=== PATIENT | male | born 1980 | race Caucasian/White ===

== ENCOUNTER 2016-09-10 19:23 | Emergency (ER) | payer SELFPAY ==
[~2016-09-10] VITALS: Ht 182.9 cm; Wt 95.3 kg
[2016-09-10 19:39] VITALS: BP 143/99
[2016-09-10] MEDS ORDERED: BACITRACIN TOP OINT 1 UD PKG TOP ONE (21:00)
== END 2016-09-10 21:05 | disposition home or self-care (01) ==
LOC: ER 19:29
DX: S61.411A Laceration without foreign body of right hand, initial encounter (principal); F17.210 Nicotine dependence, cigarettes, uncomplicated; F12.10 Cannabis abuse, uncomplicated; Y04.0XXA Assault by unarmed brawl or fight, initial encounter; Y93.89 Activity, other specified; Y99.8 Other external cause status; Y92.89 Other specified places as the place of occurrence of the external cause; Z88.6 Allergy status to analgesic agent
CPT/HCPCS: 12002

== ENCOUNTER 2016-10-25 11:55 | Emergency (ER) | payer SELFPAY ==
[~2016-10-25] VITALS: Ht 182.9 cm; Wt 86.2 kg
[2016-10-25 12:04] VITALS: BP 126/82
[2016-10-25] MEDS ORDERED: SODIUM CHLORIDE 0.9% 1,000 ML IVB ONE (12:15)
[2016-10-25] MEDS ORDERED: NALBUPHINE HCL 10 MG/1ml INJECTION IV ONE (12:15)
[2016-10-25 12:54] LABS: Basophils # (auto) 0.1 uL; Basophils % (auto) 0.5 % (0.0-2.0); Eosinophils # (auto) 0.1 uL; Eosinophils % (auto) 1.2 % (0.0-7.0); Hematocrit 45.2 % (41.0-53.0); Hemoglobin 15.6 g/dL (13.5-17.5); Lymphocytes % (auto) 35.2 % (10.0-50.0); Mean Corpuscular Hemoglobin 31.9 pg (28.0-32.0); Mean Corpuscular Hgb Conc. 34.7 g/dL (32.0-36.0); Mean Platelet Volume 7.9 fL (7.4-10.4); Neutrophils # (auto) 6.2 uL; Neutrophils % (auto) 54.1 % (37.0-80.0); Platelet Count (auto) 363 10^3/uL (140-450); Red Cell Distribution Width 13.4 % (11.6-16.0); White Blood Cell 11.5 10^3/uL (4.4-10.8)
[2016-10-25 13:10] LABS: Alkaline Phosphatase 79 U/L (45-117); Amylase 52 U/L (25-115); Anion Gap 11 (5-15); Aspartate Aminotransferase 23 U/L (15-37); BUN/Creatinine Ratio 18.2; Bilirubin, Total 0.5 mg/dL (0.2-1.0); Blood Urea Nitrogen 16 mg/dL (7-18); Calcium 9.5 mg/dL (8.5-10.1); Carbon Dioxide 25 mmol/L (21-32); Chloride 108 mmol/L (98-107); GFR African American 125 mL/min; GFR Non-African American 104 mL/min; Glucose 88 mg/dL (74-106); Sodium 144 mmol/L (136-145)
== END 2016-10-25 15:11 | disposition home or self-care (01) ==
LOC: ER 11:55 → EDBD 11:55 → ER 15:08
DX: M71.9 Bursopathy, unspecified (principal); F17.210 Nicotine dependence, cigarettes, uncomplicated; F12.10 Cannabis abuse, uncomplicated; Z88.6 Allergy status to analgesic agent
CPT/HCPCS: 36415; 73080; 80053; 82150; 83690; 84484; 85025; 87040; 96374; 99285; J2300

== ENCOUNTER 2016-10-25 16:25 | Observation (INO) | payer SELFPAY ==
[~2016-10-25] VITALS: Ht 182.9 cm; Wt 88.5 kg
[2016-10-25 21:25] LABS: Albumin 3.9 g/dL (3.4-5.0); Calcium 9.1 mg/dL (8.5-10.1); Potassium 4.1 mmol/L (3.5-5.1)
[2016-10-25 21:27] LABS: BUN/Creatinine Ratio 17.8
[2016-10-25 21:29] LABS: Bilirubin, Total 0.3 mg/dL (0.2-1.0); Total Protein 8.1 g/dL (6.4-8.2)
[2016-10-25 21:38] LABS: Basophils # (auto) 0.1 uL; Basophils % (auto) 0.5 % (0.0-2.0); Eosinophils # (auto) 0.2 uL; Eosinophils % (auto) 2.2 % (0.0-7.0); Hematocrit 45.4 % (41.0-53.0); Hemoglobin 15.5 g/dL (13.5-17.5); Lymphocytes # (auto) 3.9 uL; Lymphocytes % (auto) 35.3 % (10.0-50.0); Mean Corpuscular Hgb Conc. 34.2 g/dL (32.0-36.0); Mean Corpuscular Volume 93.5 fL (80.0-100.0); Mean Platelet Volume 7.7 fL (7.4-10.4); Monocytes # (auto) 0.9 uL; Monocytes % (auto) 8.5 % (0.0-12.0); Neutrophils # (auto) 5.9 uL; Neutrophils % (auto) 53.5 % (37.0-80.0); Platelet Count (auto) 361 10^3/uL (140-450); Red Cell Distribution Width 13.9 % (11.6-16.0); White Blood Cell 11.1 10^3/uL (4.4-10.8)
[2016-10-25 22:39] LABS: Urine Bilirubin Negative (Negative); Urine Blood Negative /uL (Negative); Urine Ca Oxalate Crystal FEW (None Seen); Urine Color Yellow (Yellow); Urine Glucose Normal (Normal); Urine Ketone Negative (Negative); Urine Mucus FEW (None Seen); Urine Nitrite Negative (Negative); Urine RBC 2 /hpf (0 - 3); Urine Urobilinogen Normal (Negative); Urine pH 6.5 (5.0-8.0)
[2016-10-25] MEDS ORDERED: LORazepam 2MG/ML-1ML VIAL ONE (23:19)
[2016-10-25] MEDS ORDERED: LORazepam 2MG/ML-1ML VIAL IV ONE (23:30)
[2016-10-26 00:42] VITALS: BP 125/80
== END 2016-10-26 00:42 | disposition home or self-care (01) | DRG 897 ==
LOC: ER 16:32 → OVERFLOW 22:27 → ER 10-26 00:42
PROVIDERS: ADMIT Emergency Medicine; ATTEND Emergency Medicine
DX: F15.10 Other stimulant abuse, uncomplicated (principal); F12.10 Cannabis abuse, uncomplicated; L30.9 Dermatitis, unspecified; F17.210 Nicotine dependence, cigarettes, uncomplicated; F41.9 Anxiety disorder, unspecified
CPT/HCPCS: 36415; 74176; 80053; 81001; 85025; 96374; 99285; G0378; G0434; J2060

== ENCOUNTER 2016-11-22 08:09 | Emergency (ER) | payer SELFPAY ==
[~2016-11-22] VITALS: Ht 185.4 cm; Wt 81.6 kg
[2016-11-22] MEDS ORDERED: SODIUM CHLORIDE 0.9% 1,000 ML IV ONE (08:19)
[2016-11-22] MEDS ORDERED: NALOXONE HCL 0.4 MG/ML VIAL IV ONE (08:30)
[2016-11-22 09:13] LABS: Basophils # (auto) 0.1 uL; Basophils % (auto) 0.6 % (0.0-2.0); Eosinophils # (auto) 0.1 uL; Eosinophils % (auto) 1.5 % (0.0-7.0); Hematocrit 44.2 % (41.0-53.0); Lymphocytes # (auto) 2.4 uL; Lymphocytes % (auto) 24.1 % (10.0-50.0); Mean Corpuscular Hemoglobin 31.9 pg (28.0-32.0); Mean Corpuscular Volume 93.9 fL (80.0-100.0); Mean Platelet Volume 7.9 fL (7.4-10.4); Monocytes # (auto) 0.8 uL; Neutrophils # (auto) 6.5 uL; Neutrophils % (auto) 65.8 % (37.0-80.0); Platelet Count (auto) 215 10^3/uL (140-450); Red Cell Distribution Width 14.1 % (11.6-16.0); White Blood Cell 9.9 10^3/uL (4.4-10.8)
[2016-11-22 09:44] LABS: Albumin 4.1 g/dL (3.4-5.0); Alkaline Phosphatase 75 U/L (45-117); Anion Gap 9 (5-15); Aspartate Aminotransferase 23 U/L (15-37); BUN/Creatinine Ratio 15.1; Bilirubin, Total 0.4 mg/dL (0.2-1.0); Blood Urea Nitrogen 14 mg/dL (7-18); Carbon Dioxide 29 mmol/L (21-32); Chloride 107 mmol/L (98-107); GFR African American 118 mL/min; GFR Non-African American 97 mL/min; Glucose 89 mg/dL (74-106); Sodium 145 mmol/L (136-145); Total Protein 7.9 g/dL (6.4-8.2)
[2016-11-22 09:56] LABS: INR 0.95 (0.9-1.15); Partial Thromboplastin Time 25.2 sec (22.64-33.71); Prothrombin Time 10.3 sec (9.37-12.3)
[2016-11-22 11:23] LABS: Urine RBC None Seen /hpf (0 - 3)
[2016-11-22 11:48] LABS: Urine Bilirubin Negative (Negative); Urine Blood Negative /uL (Negative); Urine Color Yellow (Yellow); Urine Glucose Normal (Normal); Urine Ketone Negative (Negative); Urine Nitrite Negative (Negative); Urine Urobilinogen Normal (Negative); Urine pH 7.5 (5.0-8.0)
[2016-11-22 15:00] VITALS: BP 121/82
== END 2016-11-22 15:58 | disposition home or self-care (01) ==
LOC: EDBD 08:09 → ER 08:13
DX: L30.9 Dermatitis, unspecified (principal); F12.10 Cannabis abuse, uncomplicated; F15.10 Other stimulant abuse, uncomplicated; R41.82 Altered mental status, unspecified; F17.210 Nicotine dependence, cigarettes, uncomplicated; R55 Syncope and collapse; Z88.6 Allergy status to analgesic agent
CPT/HCPCS: 36415; 70450; 71010; 80053; 80320; 81001; 84484; 85025; 85610; 85730; 93005; 96361; 96374; 99285; G0434; J2310; J7030